=== PATIENT | male | born 1950 | race Caucasian/White ===

== ENCOUNTER 2020-07-05 12:15 | Emergency (ER) | payer OTHER, MEDICAID ==
[~2020-07-05] VITALS: Ht 195.6 cm; Wt 124.7 kg
[2020-07-05 12:15] VITALS: BP_SYST 154
[2020-07-05] MEDS ORDERED: ONDANSETRON HCL 4 MG/2 ML VIAL IVP ONE (12:45)
[2020-07-05 12:59] LABS: BASOPHILS % (AUTO) 0.4 % (0.0-2.0); EOSINOPHILS # (AUTO) 0.3 K/uL (0.0-0.4); EOSINOPHILS % (AUTO) 4.1 % (0.0-4.0); HEMATOCRIT 39.6 % (36-54); HEMOGLOBIN 13.5 g/dL (14.0-18.0); LYMPHOCYTES # (AUTO) 1.1 K/uL (1.0-5.5); LYMPHOCYTES % (AUTO) 16.6 % (20.5-51.5); MEAN CORPUSCULAR HEMOGLOBIN 30 pg (27-31); MEAN CORPUSCULAR HGB CONC 34 % (32-36); MEAN CORPUSCULAR VOLUME 89 fL (79.0-98.0); MONOCYTES # (AUTO) 0.6 K/uL (0.0-1.0); MONOCYTES % (AUTO) 8.5 % (1.7-9.3); NEUTROPHILS # (AUTO) 4.7 K/uL (1.8-7.7); NEUTROPHILS % (AUTO) 70.4 % (40.0-70.0); PLATELET COUNT (AUTO) 179 K/uL (130-430); RED BLOOD CELL COUNT(AUTO) 4.48 MIL/uL (4.2-6.2); RED CELL DISTRIBUTION WIDTH 13.1 % (9.0-15.0); WHITE BLOOD COUNT (AUTO) 6.7 K/uL (4.8-10.8)
[2020-07-05 13:00] LABS: BILIRUBIN,URINE NEGATIVE (NEGATIVE); BLOOD, URINE 3+ (NEGATIVE); CLARITY/URINE TURBID (CLEAR); COLOR,URINE YELLOW (YELLOW); GLUCOSE,URINE NEGATIVE (NEGATIVE); KETONES,URINE NEGATIVE (NEGATIVE); LEUKOCYTE ESTERASE ,URINE NEGATIVE (NEGATIVE); NITRITE, URINE NEGATIVE (NEGATIVE); PROTEIN URINE TRACE (NEGATIVE); UROBILINOGEN,URINE 0.2 (0.2-1.0)
[2020-07-05 13:05] LABS: CALCIUM 9.3 mg/dL (8.4-11.0); CREATININE 1.5 mg/dL (0.55-1.30); POTASSIUM 3.3 mmol/L (3.5-5.1)
[2020-07-05 13:10] LABS: PROTHROMBIN TIME 10.6 SECS (9.5-12.5)
[2020-07-05 13:11] LABS: BACTERIA,URINE FEW /HPF (None Seen); RBC,URINE 20-50 /HPF (0-3); WBC,URINE 0-3 /HPF (0-3)
[2020-07-05 13:11] LABS: ALBUMIN 3.7 g/dL (3.4-4.8); TOTAL BILIRUBIN 0.6 mg/dL (0.0-1.0)
[2020-07-05 13:12] LABS: TRICHOMONAS,URINE None Seen /HPF (None Seen); YEAST,URINE Many /HPF (None Seen)
[2020-07-05] MEDS ORDERED: PROCHLORPERAZINE EDISYLATE 10 MG/2 ML VIAL IVP ONE (14:00)
[2020-07-05] MEDS ORDERED: cloNIDine HCL 0.1 MG TABLET PO ONE (14:15)
[2020-07-05 15:34] VITALS: BP_SYST 178
== END 2020-07-05 15:25 | disposition home or self-care (01) ==
LOC: SED 12:15
DX: R11.0 Nausea (principal)
CPT/HCPCS: 36415; 36600; 71045; 80053; 81000; 82803; 83605; 84484; 85025; 85610; 85730; 87086; 93005; 96374; 96375; 99285; J0780; J2405